=== PATIENT | female | born 1970 | race American Indian/Alaskan Native ===

== ENCOUNTER 2017-06-15 08:15 | Day surgery (SDC) | payer MEDICAID ==
[~2017-06-15 08:15] MED LIST: Bupivacaine 0.5% 10 ML SDV ONE; Lidocaine 1% 30 ML SDV ONE; Sodium Chloride 0.9% 10 ML Syringe FLUSH PRN
[2017-06-15] MEDS ORDERED: Lidocaine 1% 30 ML SDV INJECT ONE (08:16)
[2017-06-15] MEDS ORDERED: Midazolam 1 MG/ML 2 ML SDV IV ONE (08:16)
[2017-06-15] MEDS ORDERED: Propofol 200 MG/20 ML SDV IV ONE (08:16)
[2017-06-15] MEDS ORDERED: Ondansetron 4 MG/2 ML SDV IV ONE (08:16)
[2017-06-15] MEDS ORDERED: Dexamethasone 4 MG/ML SDV IV ONE (08:16)
[2017-06-15] MEDS ORDERED: fentaNYL 100 MCG/2 ML SDV IV ONE (08:16)
[2017-06-15] MEDS ORDERED: Betamethasone Acetate/Betamethasone Sod Phosphate 30 MG/5 ML MDV ONE ×2 (08:16→11:07)
[2017-06-15] MEDS ORDERED: Ketorolac 30 MG/ML SDV IVPUSH ONE (08:16)
[2017-06-15] MEDS ORDERED: Bupivacaine 0.5% 30 ML SDV INJECT ONE (08:16)
[2017-06-15] MEDS: Lactated Ringers 1,000 ML IV SCH (08:50)
[2017-06-15] MEDS ORDERED: Bupivacaine 0.5% 10 ML SDV ONE (10:45)
[2017-06-15] MEDS: Lidocaine 1% 30 ML SDV INJECT ONE ×3 (10:52→12:15)
[2017-06-15] MEDS: Bupivacaine 0.5% 10 ML SDV INJECT ONE ×3 (10:52→12:15)
[2017-06-15] MEDS: ceFAZolin 1 GM in Premix Bag 1 BAG IV ONE (11:04)
[2017-06-15] MEDS: Betamethasone Acetate/Betamethasone Sod Phosphate 30 MG/5 ML MDV IM ONE (12:15)
[2017-06-15] MEDS ORDERED: Acetaminophen/oxyCODONE 325-5 MG Tab PO PRN (12:40)
--- NOTE | 2017-06-15 12:43 | PCM.OPNOTE ---
- General Post-Op/Procedure Note Date of Surgery/Procedure: 06/15/17 Operative Procedure(s): left foot 1st metatarsal osteotomy/bunionectomy Pre Op Diagnosis: left foot painful bunion Post-Op Diagnosis: bart Anesthesia Technique: Local, MAC Primary Surgeon: Evelin Yang Anesthesia Provider: [employer] Project Manager: Barby Andres (medical student) EBL in mLs: 10 Complications: none Condition: Good Free Text/Narrative:: Pt tolerated procedure well and was transported to recovery with vascular status intact to left foot. TT 73 mins. [facility] 3.0 and 2.0 cannulated screws placed at osteotomy site. Well padded dressing with cam boot and crutches placed.
[2017-06-15 14:03] VITALS: BP 121/57
--- NOTE | 2017-06-16 10:39 | OR ---
DATE: 06/15/2017 PREOPERATIVE DIAGNOSIS: Left foot painful bunion deformity. POSTOPERATIVE DIAGNOSIS: Left foot painful bunion deformity. PROCEDURE PERFORMED: Left foot first metatarsal osteotomy/bunionectomy with hardware fixation. ANESTHESIA: Local MAC with preoperative local block, 1:1 mixture of 1% lidocaine plain and 0.5% Marcaine plain, 10 mL. TOURNIQUET TIME: Seventy three minutes. Pneumatic ankle tourniquet. ESTIMATED BLOOD LOSS: Minimal. SPECIMEN: None. COMPLICATIONS: None. INDICATIONS: Zhanna is a 46-year-old female who presents with left foot bunion pain. She has been dealing with this for a couple of years now. We have tried shoe modifications, padding, toe spacers, and bunion splints with no relief. We have also tried an injection to the area which only helped for a few weeks. She has also been seeing Pain Management for some back issues, but she did recently get some injections in her back, was hoping that this would possibly help her feet as well but it really did not. She lives with her grandchildren and is on her feet all day. She has exhausted conservative options and would like to have surgery at this point. On x-rays, they reveal 3 views of the left foot with intermetatarsal angle of 14 degrees, medially deviated first metatarsal with a cystic area at the medial prominence, no signs of fracture present. The patient voiced good understanding of proposed procedure and possible complications and elects to have surgery at this time. DESCRIPTION OF THE PROCEDURE: The patient was taken to the operating room lying in the supine position. After adequate anesthesia induction as described above, the left foot was prepped and draped in the usual sterile fashion. A pneumatic ankle tourniquet was inflated to 225 mmHg. Attention was then directed to the dorsal aspect of the first metatarsophalangeal joint, where an approximately 6 cm linear incision was made. Sharp and blunt dissection was performed down to the level of the joint capsule with care to gently retract all neurovascular bundles. An inverted L-capsulotomy was made, and the capsule was reflected to expose the distal first metatarsal. The hypertrophic medial eminence was noted at this time and was resected with a sagittal saw. Blunt dissection was performed in the first interspace to the level of the fibular sesamoid. The adductor hallucis tendon was transected from its attachment to the fibular sesamoid, and a lateral release was performed. A sagittal saw was then used to make a chevron-type osteotomy with a long dorsal arm, angulated in a fashion that would allow for plantar displacement and maintenance of length with lateral transposition of the capital fragment. The capital fragment was then laterally transposed, approximately 6 mm, and impacted to bring the hallux in a rectus alignment. K-wires from the Frantz cannulated screw set were used as temporary fixation. Two partially threaded screws from the [place] set, one a 3-0 screw and one was a 2-0 screw, were then placed in AO fashion across the osteotomy site. The temporary fixation was removed. The osteotomy site was noted to be stable with axial, valgus, and varus force applied with fluid range of motion of first MTPJ. The first MTPJ was inspected, and no defects were visualized with healthy cartilage. Fluoroscopy was used throughout this procedure to verify proper reduction of the deformity as well as proper screw fixation. A medial capsulorrhaphy was performed. The area was irrigated with copious amounts of sterile saline. Capsular closure was completed with 2-0 Vicryl, and skin closure was completed with 4-0 nylon. The hallux was noted to be in a near rectus alignment at this time. The patient tolerated the procedure well and left the operating room for recovery with vital signs stable, in good condition. Vascular status intact to the left foot as noted by immediate hyperemia upon deflation of the ankle tourniquet. Total tourniquet time was 73 minutes. I did have a medical student assisting with the procedure today. The patient was then discharged home when she met hospital discharge requirements. [facility] /[id number]
== END 2017-06-15 13:25 | disposition home or self-care (01) ==
LOC: DL.SDS 08:15
PROVIDERS: ATTEND Podiatrist
DX: M21.612 Bunion of left foot (principal); K21.9 Gastro-esophageal reflux disease without esophagitis; E66.9 Obesity, unspecified; F41.9 Anxiety disorder, unspecified; Z87.891 Personal history of nicotine dependence
CPT/HCPCS: 01480; 28296; C1713; J0690; J0702; J1100; J1885; J2250; J2405; J2704; J3010; J7120

== ENCOUNTER 2024-12-04 12:24 | Emergency (ER) | payer MEDICAID ==
[2024-12-04 12:55] VITALS: BP 129/72; PULSE 60
== END 2024-12-04 13:58 | disposition home or self-care (01) ==
LOC: DL.ED 12:24
DX: M94.0 Chondrocostal junction syndrome [Tietze] (principal); K21.9 Gastro-esophageal reflux disease without esophagitis; E78.00 Pure hypercholesterolemia, unspecified; E66.9 Obesity, unspecified; Z88.8 Allergy status to other drugs, medicaments and biological substances; Z79.899 Other long term (current) drug therapy
CPT/HCPCS: 36415; 84484; 93005; 99285; A9270